=== PATIENT | female | born 1945 | race Caucasian/White ===

== ENCOUNTER 2019-04-15 09:00 | Inpatient (IN) ==
[~2019-04-15 09:00] MED LIST: DEXTROSE 50% 25 GM/50 ML VIAL IV PRN; DICLOFENAC 1% GEL 100 GM TUBE TOP PRN; GLUCAGON 1 MG VIAL IM PRN; ONDANSETRON 4 MG/2 ML VIAL IV PRN
[2019-04-15 10:14] LABS: Basophils # 0.1 10*3/uL (0.0-0.2); Basophils % 0.8 % (0.0-0.8); Eosinophils # 0.2 10*3/uL (0.0-0.87); Eosinophils % 3.6 % (0.00-10.9); Hematocrit 37.1 VOL% (35.7-47.0); Immature Granulocytes % 0.2 %; Immature Granulocytes Absolute 0.01 #; Lymphocytes # 1.6 10*3/uL (1.4-4.0); Lymphocytes % 25.7 % (21.3-54.2); Mean Corpuscular HGB Conc 32.3 GM/DL (32-36); Mean Corpuscular Volume 92.5 FL (87-102); Mean Platelet Volume 9.2 FL (9.6-12.0); Monocytes % 6.8 % (1.7-12.7); Neutrophils % 62.9 % (38.7-73.9); Platelet Count 243 T/CUMM (130-400); Red Blood Count 4.01 MC/CUMM (3.8-5.5); White Blood Count 6.1 T/CUMM (4-12)
[2019-04-15 10:33] LABS: Albumin 3.2 G/DL (3.4-5.0); Bilirubin,Total 1.1 MG/DL (0.2-1.0); Calcium 8.9 MG/DL (8.5-10.1); Total Protein 6.4 G/DL (6.4-8.3)
[2019-04-15] MEDS: CHLORHEXIDINE 0.12% ORAL RINSE 60 ML BOTTLE SWISH/SPIT SCH ×4 (10:55→21:34)
[2019-04-15] MEDS: OMEGA 3 ACID ETHYL ESTERS 1 GM CAPSULE PO SCH ×7 (11:11→21:36)
[2019-04-15] MEDS: FESOTERODINE 4 MG PO SCH ×3 (11:11→14:53)
[2019-04-15] MEDS: LOSARTAN/HCTZ 50-12.5 MG TABLET PO SCH ×2 (11:11→14:53)
[2019-04-15] MEDS: MULTIVITAMIN (BEROCCA) TABLET PO SCH ×5 (11:11→14:58)
[2019-04-15] MEDS: COENZYME Q10 100 MG CAPSULE PO SCH ×4 (11:11→14:58)
[2019-04-15] MEDS: ASPIRIN EC 81 MG TABLET PO SCH ×5 (11:11→14:58)
[2019-04-15] MEDS: CHOLECALCIFEROL 400 UNIT TABLET PO SCH ×5 (11:12→14:58)
[2019-04-15] MEDS: ASCORBIC ACID 500 MG TABLET PO SCH ×6 (11:12→21:39)
[2019-04-15] MEDS: COLESEVELAM 625 MG TABLET PO SCH ×7 (11:12→21:36)
[2019-04-15] MEDS: MELOXICAM 7.5 MG TABLET PO SCH ×2 (11:12→14:54)
[2019-04-15] MEDS: PANTOPRAZOLE 40 MG TABLET PO SCH ×5 (11:12→14:58)
[2019-04-15] MEDS: SODIUM CHLORIDE 0.9% 1,000 ML IV SCH ×3 (14:54→14:59)
[2019-04-15] MEDS: CHLORHEXIDINE 4% SOLN 118 ML BOTTLE TOP SCH ×2 (16:18→22:06)
[2019-04-15 16:43] LABS: Pt O2 Delivery Device Room Air
[2019-04-15 16:44] LABS: ABG Base Excess 3.4 MMOL/L (-2.5-2.5); ABG HCO3 26.7 MMOL/L (20-26); ABG Oxygen Saturation 64.1 % (95-100); ABG PCO2 49.8 MM HG (35-48); ABG PH 7.382 (7.35-7.45)
[2019-04-15 16:46] LABS: ABG PO2 33.9 MM HG (80-95)
[2019-04-15 17:46] LABS: ABG Base Excess 1.2 MMOL/L (-2.5-2.5); ABG HCO3 25.5 MMOL/L (20-26); ABG PCO2 43.4 MM HG (35-48); ABG PH 7.393 (7.35-7.45); ABG PO2 80.8 MM HG (80-95); ABG TCO2 23.2 MMOL/L (23-27)
[2019-04-16] MEDS ORDERED: VANCOMYCIN 1,000 MG VIAL ONE (04:25)
[2019-04-16] MEDS ORDERED: FAMOTIDINE 20 MG TABLET PO ONE (06:00)
[2019-04-16] MEDS ORDERED: CEFUROXIME INJ 1,500 MG in SYRINGE 1 EACH IV ONE (06:00)
[2019-04-16] MEDS ORDERED: DIAZEPAM 5 MG TABLET PO ONE (06:00)
[2019-04-16] MEDS ORDERED: MIDAZOLAM 10 MG/2 ML VIAL ONE (06:04)
[2019-04-16] MEDS ORDERED: SUFentanil 250 MCG/5 ML AMP ONE (06:04)
[2019-04-16] MEDS ORDERED: NITROPRUSSIDE 50 MG/2 ML VIAL ONE (07:30)
[2019-04-16] MEDS ORDERED: EPINEPHrine 1 MG/10 ML SYRINGE ONE (07:30)
[2019-04-16] MEDS ORDERED: SODIUM BICARBONATE 50 MEQ/50 ML VIAL IV ONE ×2 (07:30→09:44)
[2019-04-16] MEDS ORDERED: PHENYLEPHRINE DRIP 40 MG/250 ML PREMIX IV ONE (07:30)
[2019-04-16] MEDS ORDERED: CALCIUM CHLORIDE 1,000 MG/10 ML SYRINGE IV ONE (07:30)
[2019-04-16] MEDS ORDERED: POTASSIUM CHLORIDE RIDER 100 ML IV ONE (07:31)
[2019-04-16] MEDS ORDERED: ATROPINE 1 MG/10 ML SYRINGE ONE (07:31)
[2019-04-16] MEDS ORDERED: ALBUMIN 5% 12.5 GM/250 ML VIAL IV ONE (07:31)
[2019-04-16] MEDS ORDERED: LIDOCAINE 100 MG/5 ML SYRINGE ONE (07:31)
[2019-04-16 07:54] LABS: ABG Base Excess 2.2 MMOL/L (-2.5-2.5); ABG HCO3 26.4 MMOL/L (20-26); ABG Oxygen Saturation 99.8 % (95-100); ABG PCO2 37.9 MM HG (35-48); ABG PH 7.447 (7.35-7.45); Glucose Heart Surgery 103 MG/DL (74-106); Hematocrit Heart Surgery 37.3 PERCENT (37-47); Hemoglobin Heart Surgery 12.1 G/DL (12.0-16.0); Ionized Calcium Arterial 1.19 MMOL/L (1.21-1.46); PCO2 Patient Temp Arterial 37.9 MMHG; PH Patient Temp Arterial 7.447; Patient Temperature 37 CELCIUS; Sodium Heart/CVR 139 MMOL/L (135-145)
[2019-04-16 08:37] LABS: Hematocrit Heart Surgery 26.2 PERCENT (37-47); Hemoglobin Heart Surgery 8.4 G/DL (12.0-16.0); PCO2 Patient Temp Venous 37.3 MM HG; PH Patient Temp Venous 7.457; PO2 Patient Temp Venous 39.3 MM HG; Potassium Heart/CVR 4.4 MMOL/L (3.5-5.1); VBG Base Excess 2.6 MEQ/L (0-4); VBG HCO3 26.5 MEQ/L (24-28); VBG Oxygen Saturation 80.8 %; VBG PCO2 39.2 MMHG (41-51); VBG PH 7.442; VBG PO2 42.1 MMHG (17-40)
[2019-04-16 09:07] LABS: Hematocrit Heart Surgery 27.9 PERCENT (37-47); PH Patient Temp Venous 7.467; PO2 Patient Temp Venous 38.6 MM HG; VBG Base Excess 1.9 MEQ/L (0-4); VBG HCO3 25.9 MEQ/L (24-28); VBG PCO2 40.5 MMHG (41-51); VBG PH 7.423; VBG PO2 47.5 MMHG (17-40)
[2019-04-16] MEDS ORDERED: MANNITOL 100 GM/500 ML BAG IV ONE (09:43)
[2019-04-16] MEDS ORDERED: LIDOCAINE 2% 5 ML VIAL ONE (09:43)
[2019-04-16] MEDS ORDERED: PROTAMINE SULFATE 50 MG/5 ML VIAL IV ONE ×3 (09:44→11:41)
[2019-04-16] MEDS ORDERED: FUROSEMIDE 20 MG/2 ML VIAL ONE (09:44)
[2019-04-16] MEDS ORDERED: methylPREDNISolone SOD SUC 1,000 MG/8 ML VIAL ONE (09:44)
[2019-04-16] MEDS ORDERED: DEXTROSE 5% KCL 20 MEQ 20 MEQ/1,000 ML BAG IV ONE (09:44)
[2019-04-16] MEDS ORDERED: HEPARIN 10,000 UNIT/10 ML VIAL ONE (09:44)
[2019-04-16] MEDS ORDERED: MAGNESIUM SULFATE 5 GM/10 ML VIAL IV ONE (09:44)
[2019-04-16] MEDS ORDERED: PROTAMINE SULFATE 250 MG/25 ML VIAL IV ONE (09:44)
[2019-04-16 10:05] LABS: ABG Base Excess 0.4 MMOL/L (-2.5-2.5); ABG HCO3 24.6 MMOL/L (20-26); ABG Oxygen Saturation 99.2 % (95-100); ABG PCO2 38.1 MM HG (35-48); ABG PH 7.428 (7.35-7.45); ABG PO2 346.9 MM HG (80-95); ABG TCO2 25.8 MMOL/L (23-27); Glucose Heart Surgery 157 MG/DL (74-106); Hemoglobin Heart Surgery 10.7 G/DL (12.0-16.0); Ionized Calcium Arterial 1.24 MMOL/L (1.21-1.46); PCO2 Patient Temp Arterial 38.1 MMHG; PH Patient Temp Arterial 7.428; PO2 Patient Temp Arterial 346.9 MM HG; Patient Temperature 37 CELCIUS; Potassium Heart/CVR 3.6 MMOL/L (3.5-5.1); Sodium Heart/CVR 134 MMOL/L (135-145)
[2019-04-16] MEDS ORDERED: SEVOFLURANE 1 UNIT/15 MINUTE INH ONE (10:43)
[2019-04-16] MEDS ORDERED: CALCIUM CHLORIDE 1,000 MG/10 ML SYRINGE IV PRN (10:44)
[2019-04-16] MEDS ORDERED: INSULIN REGULAR 100 UNIT/ML IV ONE (10:44)
[2019-04-16] MEDS ORDERED: MIDAZOLAM 10 MG/2 ML VIAL IV PRN (10:44)
[2019-04-16] MEDS ORDERED: ONDANSETRON 4 MG/2 ML VIAL IV PRN (10:44)
[2019-04-16] MEDS ORDERED: DEXTROSE 10% 250 ML BAG IV PRN ×2 (10:44)
[2019-04-16] MEDS ORDERED: PHENYLEPHRINE DRIP 40 MG/250 ML PREMIX IV PRN (10:44)
[2019-04-16] MEDS ORDERED: MORPHINE 10 MG/1 ML VIAL IV PRN (10:44)
[2019-04-16] MEDS ORDERED: ACETAMINOPHEN 650 MG SUPP RECTAL PRN (10:44)
[2019-04-16] MEDS ORDERED: MAGNESIUM SULF RIDER 2 GM in PREMIX 1 EACH IV PRN (10:44)
[2019-04-16] MEDS ORDERED: MIDAZOLAM 2 MG/2 ML VIAL IV PRN (10:44)
[2019-04-16] MEDS ORDERED: NITROPRUSSIDE 100 MG in DEXTROSE 5% 250 ML IV PRN (10:44)
[2019-04-16] MEDS ORDERED: MAGNESIUM SULF RIDER 4 GM in PREMIX 1 EACH IV PRN (10:44)
[2019-04-16] MEDS ORDERED: VECURONIUM 10 MG VIAL IV PRN ×2 (10:44)
[2019-04-16] MEDS ORDERED: LACTATED RINGERS 250 ML IV PRN (10:44)
[2019-04-16] MEDS ORDERED: INSULIN REGULAR 100 UNIT/ML IV PRN (10:44)
[2019-04-16] MEDS ORDERED: PHENYLEPHRINE DRIP 20 MG/250 ML PREMIX IV ONE (10:46)
[2019-04-16] MEDS ORDERED: LIDOCAINE 1% 5 ML VIAL ONE (10:46)
[2019-04-16] MEDS ORDERED: SODIUM CHLORIDE 0.9% 1,000 ML IV ONE (10:47)
[2019-04-16] MEDS ORDERED: CALCIUM CHLORIDE 1,000 MG/10 ML VIAL IV ONE (10:47)
[2019-04-16] MEDS ORDERED: ETOMIDATE 40 MG/20 ML VIAL IV ONE (10:47)
[2019-04-16] MEDS ORDERED: NITROGLYCERIN DRIP 50 MG/250 ML BOTTLE IV ONE (10:47)
[2019-04-16] MEDS ORDERED: PHENYLEPHRINE 1 MG/10 ML SYRINGE IV ONE (10:47)
[2019-04-16] MEDS ORDERED: AMINOCAPROIC ACID 5,000 MG/20 ML VIAL ONE (10:47)
[2019-04-16] MEDS ORDERED: HEPARIN/NACL 0.9% 2 UNITS/ML 500 ML IV ONE (10:48)
[2019-04-16] MEDS ORDERED: SODIUM CHLORIDE 0.45% 1,000 ML IV SCH ×2 (11:00)
[2019-04-16] MEDS ORDERED: INSULIN REGULAR DRIP 100 ML IV SCH (11:00)
[2019-04-16 11:29] LABS: ABG Base Excess 0.7 MMOL/L (-2.5-2.5); ABG HCO3 25.1 MMOL/L (20-26); ABG Oxygen Saturation 99.8 % (95-100); ABG PCO2 41.1 MM HG (35-48); ABG PH 7.401 (7.35-7.45); Glucose Heart Surgery 136 MG/DL (74-106); Hematocrit Heart Surgery 32.6 PERCENT (37-47); Hemoglobin Heart Surgery 10.6 G/DL (12.0-16.0); Potassium Heart/CVR 3.6 MMOL/L (3.5-5.1)
[2019-04-16] MEDS: POTASSIUM CHLORIDE RIDER 20 MEQ in PREMIX 1 EACH IV PRN ×4 (11:36→17:57)
[2019-04-16] MEDS: CHLORHEXIDINE 4% SOLN 118 ML BOTTLE TOP SCH (11:38)
[2019-04-16] MEDS: KETOROLAC 30 MG/1 ML VIAL IV SCH ×3 (11:39→22:31)
[2019-04-16] MEDS: PANTOPRAZOLE 40 MG TABLET PO SCH (11:48)
[2019-04-16] MEDS: MELOXICAM 7.5 MG TABLET PO SCH (11:48)
[2019-04-16] MEDS: MULTIVITAMIN (BEROCCA) TABLET PO SCH (11:48)
[2019-04-16] MEDS: OMEGA 3 ACID ETHYL ESTERS 1 GM CAPSULE PO SCH (11:48)
[2019-04-16] MEDS: COENZYME Q10 100 MG CAPSULE PO SCH (11:48)
[2019-04-16] MEDS: ASPIRIN EC 81 MG TABLET PO SCH (11:48)
[2019-04-16] MEDS: LOSARTAN/HCTZ 50-12.5 MG TABLET PO SCH (11:48)
[2019-04-16] MEDS: CHLORHEXIDINE 0.12% ORAL RINSE 60 ML BOTTLE SWISH/SPIT SCH (11:48)
[2019-04-16] MEDS: COLESEVELAM 625 MG TABLET PO SCH (11:49)
[2019-04-16] MEDS: ASCORBIC ACID 500 MG TABLET PO SCH (11:49)
[2019-04-16] MEDS: CHOLECALCIFEROL 400 UNIT TABLET PO SCH (11:49)
[2019-04-16] MEDS: SODIUM CHLORIDE 0.9% 1,000 ML IV SCH (11:49)
[2019-04-16 11:58] LABS: CKMB % 10.7 %
[2019-04-16 11:59] LABS: Basophils # 0.1 10*3/uL (0.0-0.2); Basophils % 0.5 % (0.0-0.8); Eosinophils # 0.1 10*3/uL (0.0-0.87); Eosinophils % 1.2 % (0.00-10.9); Hematocrit 33.3 VOL% (35.7-47.0); Hemoglobin 10.6 GM/DL (12.0-16.0); Immature Granulocytes % 0.6 %; Immature Granulocytes Absolute 0.07 #; Lymphocytes % 8.7 % (21.3-54.2); Mean Corpuscular HGB Conc 31.8 GM/DL (32-36); Mean Corpuscular Volume 93.5 FL (87-102); Mean Platelet Volume 9.2 FL (9.6-12.0); Platelet Count 211 T/CUMM (130-400); Red Blood Count 3.56 MC/CUMM (3.8-5.5); Red Cell Distribution Width 12.9 % (9.3-17.3)
[2019-04-16 12:05] LABS: PT Patient Result 11.1 SECS (9.6-12.2)
[2019-04-16 12:06] LABS: Troponin I 6.08 NG/ML (0.00-0.045)
[2019-04-16] MEDS: POTASSIUM CHLORIDE RIDER 10 MEQ in PREMIX 1 EACH IV PRN ×3 (12:06→13:58)
[2019-04-16] MEDS: ALBUMIN 5% 12.5 GM in PREMIX 1 EACH IV PRN ×2 (12:23→12:42)
[2019-04-16 12:24] LABS: Albumin 3.2 G/DL (3.4-5.0); Calcium 9.5 MG/DL (8.5-10.1); Osmolality,Calculated 292.6 MOS/KG (273-304); Total Protein 5.5 G/DL (6.4-8.3)
[2019-04-16] MEDS: LACTATED RINGERS 1,000 ML IV PRN ×3 (12:48→16:30)
[2019-04-16 13:11] LABS: ABG Base Excess -0.5 MMOL/L (-2.5-2.5); ABG Oxygen Saturation 97.6 % (95-100); ABG PCO2 48.7 MM HG (35-48); ABG PH 7.333 (7.35-7.45); ABG TCO2 23.6 MMOL/L (23-27); Glucose Heart Surgery 176 MG/DL (74-106); Hematocrit Heart Surgery 31.3 PERCENT (37-47); Hemoglobin Heart Surgery 10.1 G/DL (12.0-16.0); Potassium Heart/CVR 3.9 MMOL/L (3.5-5.1)
[2019-04-16 15:05] LABS: ABG Base Excess -1.1 MMOL/L (-2.5-2.5); ABG HCO3 23.5 MMOL/L (20-26); ABG Oxygen Saturation 97.8 % (95-100); ABG PCO2 49.1 MM HG (35-48); ABG PH 7.321 (7.35-7.45); ABG TCO2 23.4 MMOL/L (23-27); Glucose Heart Surgery 187 MG/DL (74-106); Hematocrit Heart Surgery 29.7 PERCENT (37-47); Hemoglobin Heart Surgery 9.6 G/DL (12.0-16.0)
[2019-04-16] MEDS: MORPHINE 4 MG/1 ML VIAL IV PRN ×2 (17:39→21:11)
[2019-04-16 17:49] LABS: ABG Base Excess -4.2 MMOL/L (-2.5-2.5); ABG HCO3 20.9 MMOL/L (20-26); ABG Oxygen Saturation 98.3 % (95-100); ABG PCO2 44.4 MM HG (35-48); ABG PH 7.304 (7.35-7.45); ABG TCO2 20.3 MMOL/L (23-27); Glucose Heart Surgery 178 MG/DL (74-106); Hematocrit Heart Surgery 30.9 PERCENT (37-47)
[2019-04-16] MEDS: CEFUROXIME INJ 1,500 MG in SYRINGE 1 EACH IV SCH (17:55)
[2019-04-16 19:04] LABS: CKMB % 8.8 %
[2019-04-16 19:09] LABS: Troponin I 4.18 NG/ML (0.00-0.045)
[2019-04-16 20:04] LABS: ABG Base Excess -3.4 MMOL/L (-2.5-2.5); ABG HCO3 21.6 MMOL/L (20-26); ABG Oxygen Saturation 98.8 % (95-100); ABG PCO2 45.3 MM HG (35-48); ABG PH 7.312 (7.35-7.45); ABG TCO2 20.8 MMOL/L (23-27); Glucose Heart Surgery 167 MG/DL (74-106); Hematocrit Heart Surgery 33.9 PERCENT (37-47); Potassium Heart/CVR 4.5 MMOL/L (3.5-5.1)
[2019-04-16] MEDS ORDERED: CHLORHEXIDINE 0.12% ORAL RINSE 60 ML BOTTLE SWISH/SPIT SCH (21:00)
[2019-04-17] MEDS ORDERED: FUROSEMIDE 40 MG/4 ML VIAL IV ONE (03:00)
[2019-04-17 03:07] LABS: ABG HCO3 24.5 MMOL/L (20-26); ABG Oxygen Saturation 98.3 % (95-100); ABG PCO2 44.3 MM HG (35-48); ABG PH 7.369 (7.35-7.45); ABG TCO2 23.2 MMOL/L (23-27); Glucose Heart Surgery 137 MG/DL (74-106); Hematocrit Heart Surgery 31.6 PERCENT (37-47); Hemoglobin Heart Surgery 10.2 G/DL (12.0-16.0); Potassium Heart/CVR 4.3 MMOL/L (3.5-5.1)
[2019-04-17 03:29] LABS: CKMB % 7.5 %
[2019-04-17 03:34] LABS: Troponin I 2.82 NG/ML (0.00-0.045)
[2019-04-17] MEDS: POTASSIUM CHLORIDE RIDER 20 MEQ in PREMIX 1 EACH IV PRN (03:43)
[2019-04-17 03:53] LABS: ABG Base Excess 0.9 MMOL/L (-2.5-2.5); ABG HCO3 25.2 MMOL/L (20-26); ABG Oxygen Saturation 97.7 % (95-100); ABG PCO2 43.6 MM HG (35-48); ABG PH 7.386 (7.35-7.45); ABG PO2 93.7 MM HG (80-95); ABG TCO2 23.6 MMOL/L (23-27); Glucose Heart Surgery 143 MG/DL (74-106); Hematocrit Heart Surgery 32.8 PERCENT (37-47); Hemoglobin Heart Surgery 10.6 G/DL (12.0-16.0)
[2019-04-17 04:15] LABS: Basophils % 0.3 % (0.0-0.8); Hematocrit 30.5 VOL% (35.7-47.0); Hemoglobin 9.8 GM/DL (12.0-16.0); Immature Granulocytes % 0.7 %; Lymphocytes # 0.6 10*3/uL (1.4-4.0); Lymphocytes % 4.2 % (21.3-54.2); Mean Corpuscular HGB Conc 32.1 GM/DL (32-36); Mean Corpuscular Volume 91.9 FL (87-102); Mean Platelet Volume 9.4 FL (9.6-12.0); Monocytes % 4.4 % (1.7-12.7); Neutrophils % 90.4 % (38.7-73.9); Platelet Count 167 T/CUMM (130-400); Red Blood Count 3.32 MC/CUMM (3.8-5.5); Red Cell Distribution Width 13.7 % (9.3-17.3); White Blood Count 14.9 T/CUMM (4-12)
[2019-04-17 04:26] LABS: Albumin 3.3 G/DL (3.4-5.0); Bilirubin,Direct 0.12 MG/DL (0.0-0.20); Bilirubin,Total 0.5 MG/DL (0.2-1.0); Calcium 8.2 MG/DL (8.5-10.1); Osmolality,Calculated 284.3 MOS/KG (273-304); Total Protein 5.8 G/DL (6.4-8.3)
[2019-04-17 04:45] LABS: ABG Base Excess 1.4 MMOL/L (-2.5-2.5); ABG HCO3 25.6 MMOL/L (20-26); ABG Oxygen Saturation 95.9 % (95-100); ABG PCO2 43.9 MM HG (35-48); ABG PH 7.391 (7.35-7.45); ABG PO2 75.1 MM HG (80-95); Glucose Heart Surgery 140 MG/DL (74-106); Hematocrit Heart Surgery 32.9 PERCENT (37-47); Hemoglobin Heart Surgery 10.7 G/DL (12.0-16.0); Potassium Heart/CVR 4.2 MMOL/L (3.5-5.1)
[2019-04-17 05:06] LABS: Band Neutrophils 2 % (0-10); Hypochromasia Slight; Lymphocytes 1 % (20-55); Segmented Neutrophils 95 % (50-85); Total Cells Counted 100
[2019-04-17 05:07] LABS: Microcytosis Slight; Platelet Estimate Adequate
[2019-04-17] MEDS: CEFUROXIME INJ 1,500 MG in SYRINGE 1 EACH IV SCH (05:41)
[2019-04-17] MEDS: KETOROLAC 30 MG/1 ML VIAL IV SCH ×3 (05:41→17:36)
[2019-04-17] MEDS ORDERED: INSULIN REGULAR 100 UNIT/ML SUBCUT SCH (08:00)
[2019-04-17] MEDS ORDERED: MAGNESIUM SULF RIDER 4 GM in PREMIX 1 EACH IV PRN (08:52)
[2019-04-17] MEDS ORDERED: DEXTROSE 50% 25 GM/50 ML VIAL IV PRN ×3 (08:52→09:09)
[2019-04-17] MEDS ORDERED: GLUCAGON 1 MG VIAL IM PRN ×3 (08:52→09:09)
[2019-04-17] MEDS ORDERED: MAGNESIUM HYDROXIDE SUSP 30 ML UDCUP PO PRN (08:52)
[2019-04-17] MEDS ORDERED: POTASSIUM CHLORIDE 20 MEQ TABLET PO PRN (08:52)
[2019-04-17] MEDS ORDERED: ZALEPLON 5 MG CAPSULE PO PRN (08:52)
[2019-04-17] MEDS ORDERED: ALUMINUM/MAGNES/SIMETH MAX STR 30 ML UDCUP PO PRN (08:52)
[2019-04-17] MEDS ORDERED: ACETAMINOPHEN 325 MG TABLET PO PRN (08:52)
[2019-04-17] MEDS ORDERED: MAGNESIUM SULF RIDER 2 GM in PREMIX 1 EACH IV PRN (08:52)
[2019-04-17] MEDS ORDERED: ONDANSETRON 4 MG/2 ML VIAL IV PRN (08:52)
[2019-04-17] MEDS: ASPIRIN EC 325 MG TABLET PO SCH (09:52)
[2019-04-17] MEDS: PANTOPRAZOLE 40 MG TABLET PO SCH (09:53)
[2019-04-17] MEDS: SODIUM CHLOR 0.45% KCL 20 MEQ 20 MEQ/1,000 ML BAG IV SCH (09:53)
[2019-04-17] MEDS: CHLORHEXIDINE 0.12% ORAL RINSE 60 ML BOTTLE SWISH/SPIT SCH ×2 (10:10→21:22)
[2019-04-17] MEDS: DOCUSATE SODIUM 100 MG CAPSULE PO SCH (10:10)
[2019-04-17] MEDS: FERROUS SULFATE 325 MG TABLET PO SCH (10:11)
[2019-04-17] MEDS ORDERED: LOSARTAN/HCTZ 50-12.5 MG TABLET PO ONE (10:30)
[2019-04-17] MEDS: INSULIN REGULAR 100 UNIT/ML SUBCUT SCH ×3 (11:40→21:15)
[2019-04-17] MEDS ORDERED: KETOROLAC 30 MG/1 ML VIAL IV SCH (18:00)
[2019-04-17] MEDS ORDERED: CEFUROXIME INJ 1,500 MG in SYRINGE 1 EACH IV SCH (18:30)
[2019-04-17] MEDS: ASCORBIC ACID 500 MG TABLET PO SCH (21:21)
[2019-04-18] MEDS: oxyCODONE/ACETAMINOPHEN 5-325 MG TABLET PO PRN ×2 (03:50→20:12)
[2019-04-18 04:25] LABS: Basophils % 0.3 % (0.0-0.8); Eosinophils % 0.2 % (0.00-10.9); Hematocrit 32.3 VOL% (35.7-47.0); Immature Granulocytes % 0.8 %; Immature Granulocytes Absolute 0.12 #; Lymphocytes # 1.9 10*3/uL (1.4-4.0); Lymphocytes % 12.4 % (21.3-54.2); Mean Corpuscular Volume 96.4 FL (87-102); Mean Platelet Volume 9.5 FL (9.6-12.0); Neutrophils % 79.3 % (38.7-73.9); Platelet Count 149 T/CUMM (130-400); Red Blood Count 3.35 MC/CUMM (3.8-5.5); Red Cell Distribution Width 13.9 % (9.3-17.3); White Blood Count 14.9 T/CUMM (4-12)
[2019-04-18 04:44] LABS: Albumin 3.4 G/DL (3.4-5.0); Bilirubin,Direct 0.11 MG/DL (0.0-0.20); Bilirubin,Indirect 0.3 MG/DL (0.0-1.0); Bilirubin,Total 0.4 MG/DL (0.2-1.0); CKMB % 2.2 %; Calcium 8.7 MG/DL (8.5-10.1); Osmolality,Calculated 286.3 MOS/KG (273-304); Total Protein 6.3 G/DL (6.4-8.3)
[2019-04-18 04:46] LABS: Troponin I 2.02 NG/ML (0.00-0.045)
[2019-04-18] MEDS: INSULIN REGULAR 100 UNIT/ML SUBCUT SCH ×5 (05:35→20:16)
[2019-04-18] MEDS ORDERED: FUROSEMIDE 40 MG/4 ML VIAL IV ONE (06:00)
[2019-04-18] MEDS: SODIUM CHLOR 0.45% KCL 20 MEQ 20 MEQ/1,000 ML BAG IV SCH (09:11)
[2019-04-18] MEDS: FERROUS SULFATE 325 MG TABLET PO SCH (09:12)
[2019-04-18] MEDS: DOCUSATE SODIUM 100 MG CAPSULE PO SCH (09:12)
[2019-04-18] MEDS: ASPIRIN EC 325 MG TABLET PO SCH (09:12)
[2019-04-18] MEDS: LOSARTAN/HCTZ 50-12.5 MG TABLET PO SCH ×3 (09:13→13:13)
[2019-04-18] MEDS: MELOXICAM 7.5 MG TABLET PO SCH (09:14)
[2019-04-18] MEDS: MAGNESIUM OXIDE 400 MG TABLET PO SCH (09:14)
[2019-04-18] MEDS: CHLORHEXIDINE 0.12% ORAL RINSE 60 ML BOTTLE SWISH/SPIT SCH ×2 (09:15→20:11)
[2019-04-18] MEDS: ASCORBIC ACID 500 MG TABLET PO SCH ×2 (09:15→20:11)
[2019-04-18] MEDS: PANTOPRAZOLE 40 MG TABLET PO SCH (09:15)
[2019-04-18] MEDS ORDERED: AMIODARONE INJ 150 MG in DEXTROSE 5% 100 ML IV ONE (20:43)
[2019-04-18] MEDS ORDERED: AMIODARONE INJ 450 MG in DEXTROSE 5% 241 ML IV SCH (21:00)
[2019-04-19] MEDS: INSULIN REGULAR 100 UNIT/ML SUBCUT SCH ×6 (00:10→23:00)
[2019-04-19 05:15] LABS: Basophils % 0.4 % (0.0-0.8); Eosinophils # 0.2 10*3/uL (0.0-0.87); Eosinophils % 1.9 % (0.00-10.9); Hematocrit 32.1 VOL% (35.7-47.0); Immature Granulocytes % 0.6 %; Immature Granulocytes Absolute 0.07 #; Lymphocytes # 2.7 10*3/uL (1.4-4.0); Lymphocytes % 24.7 % (21.3-54.2); Mean Corpuscular HGB Conc 31.2 GM/DL (32-36); Mean Platelet Volume 9.8 FL (9.6-12.0); Monocytes % 8.9 % (1.7-12.7); Neutrophils % 63.5 % (38.7-73.9); Platelet Count 131 T/CUMM (130-400); Red Blood Count 3.38 MC/CUMM (3.8-5.5); Red Cell Distribution Width 13.6 % (9.3-17.3); White Blood Count 10.9 T/CUMM (4-12)
[2019-04-19 05:47] LABS: Alanine Aminotransferase 21 U/L (13-56); Albumin 3.1 G/DL (3.4-5.0); Alkaline Phosphatase 45 U/L (45-117); Aspartate Amino Transferase 23 U/L (0-37); Bilirubin,Indirect 0.5 MG/DL (0.0-1.0); Blood Urea Nitrogen 24 MG/DL (7-18); Calcium 9.4 MG/DL (8.5-10.1); Estimated Glom Filtration Rate 100 ML/MIN; Glucose 122 MG/DL (74-106); Total Protein 6.2 G/DL (6.4-8.3)
[2019-04-19] MEDS: AMIODARONE 200 MG TABLET PO SCH ×2 (06:45→22:27)
[2019-04-19] MEDS ORDERED: FESOTERODINE 4 MG PO SCH (09:00)
[2019-04-19] MEDS: DOCUSATE SODIUM 100 MG CAPSULE PO SCH (09:58)
[2019-04-19] MEDS: COENZYME Q10 100 MG CAPSULE PO SCH (09:58)
[2019-04-19] MEDS: FERROUS SULFATE 325 MG TABLET PO SCH (09:58)
[2019-04-19] MEDS: CHOLECALCIFEROL 400 UNIT TABLET PO SCH (09:58)
[2019-04-19] MEDS: LOSARTAN/HCTZ 50-12.5 MG TABLET PO SCH (09:59)
[2019-04-19] MEDS: MULTIVITAMIN (BEROCCA) TABLET PO SCH (10:00)
[2019-04-19] MEDS: OMEGA 3 ACID ETHYL ESTERS 1 GM CAPSULE PO SCH ×2 (10:00→22:27)
[2019-04-19] MEDS: MAGNESIUM OXIDE 400 MG TABLET PO SCH (10:00)
[2019-04-19] MEDS: COLESEVELAM 625 MG TABLET PO SCH ×2 (10:00→22:27)
[2019-04-19] MEDS: ASCORBIC ACID 500 MG TABLET PO SCH ×2 (10:01→22:27)
[2019-04-19] MEDS: CHLORHEXIDINE 0.12% ORAL RINSE 60 ML BOTTLE SWISH/SPIT SCH ×2 (10:02→23:00)
[2019-04-19] MEDS: PANTOPRAZOLE 40 MG TABLET PO SCH (10:02)
[2019-04-19] MEDS: ASPIRIN EC 325 MG TABLET PO SCH (10:02)
[2019-04-19] MEDS: MELOXICAM 7.5 MG TABLET PO SCH (10:02)
[2019-04-19] MEDS: oxyCODONE/ACETAMINOPHEN 5-325 MG TABLET PO PRN (22:28)
[2019-04-20] MEDS: INSULIN REGULAR 100 UNIT/ML SUBCUT SCH ×2 (07:17→08:10)
[2019-04-20] MEDS: MULTIVITAMIN (BEROCCA) TABLET PO SCH (08:12)
[2019-04-20] MEDS: DOCUSATE SODIUM 100 MG CAPSULE PO SCH (08:12)
[2019-04-20] MEDS: COENZYME Q10 100 MG CAPSULE PO SCH (08:12)
[2019-04-20] MEDS: MELOXICAM 7.5 MG TABLET PO SCH (08:12)
[2019-04-20] MEDS: ASPIRIN EC 325 MG TABLET PO SCH (08:12)
[2019-04-20] MEDS: CHOLECALCIFEROL 400 UNIT TABLET PO SCH (08:13)
[2019-04-20] MEDS: AMIODARONE 200 MG TABLET PO SCH ×2 (08:13→20:41)
[2019-04-20] MEDS: CHLORHEXIDINE 0.12% ORAL RINSE 60 ML BOTTLE SWISH/SPIT SCH ×2 (08:13→20:41)
[2019-04-20] MEDS: COLESEVELAM 625 MG TABLET PO SCH ×2 (08:13→20:41)
[2019-04-20] MEDS: MAGNESIUM OXIDE 400 MG TABLET PO SCH (08:13)
[2019-04-20] MEDS: FERROUS SULFATE 325 MG TABLET PO SCH (08:13)
[2019-04-20] MEDS: PANTOPRAZOLE 40 MG TABLET PO SCH (08:13)
[2019-04-20] MEDS: LOSARTAN/HCTZ 50-12.5 MG TABLET PO SCH (08:13)
[2019-04-20] MEDS: OMEGA 3 ACID ETHYL ESTERS 1 GM CAPSULE PO SCH ×2 (08:13→20:41)
[2019-04-20] MEDS: ASCORBIC ACID 500 MG TABLET PO SCH ×2 (08:13→20:41)
[2019-04-20] MEDS: oxyCODONE/ACETAMINOPHEN 5-325 MG TABLET PO PRN (21:27)
[2019-04-21 04:30] LABS: Basophils % 0.5 % (0.0-0.8); Eosinophils # 0.4 10*3/uL (0.0-0.87); Hematocrit 32.9 VOL% (35.7-47.0); Hemoglobin 10.1 GM/DL (12.0-16.0); Immature Granulocytes % 0.9 %; Immature Granulocytes Absolute 0.08 #; Lymphocytes # 2.4 10*3/uL (1.4-4.0); Lymphocytes % 27.1 % (21.3-54.2); Mean Corpuscular HGB Conc 30.7 GM/DL (32-36); Mean Corpuscular Volume 95.9 FL (87-102); Mean Platelet Volume 9.3 FL (9.6-12.0); Monocytes % 7.1 % (1.7-12.7); Neutrophils % 60.4 % (38.7-73.9); Platelet Count 173 T/CUMM (130-400); Red Blood Count 3.43 MC/CUMM (3.8-5.5); Red Cell Distribution Width 13.1 % (9.3-17.3); White Blood Count 8.8 T/CUMM (4-12)
[2019-04-21 05:03] LABS: Alanine Aminotransferase 29 U/L (13-56); Alkaline Phosphatase 51 U/L (45-117); Aspartate Amino Transferase 19 U/L (0-37); Bilirubin,Indirect 0.5 MG/DL (0.0-1.0); Blood Urea Nitrogen 20 MG/DL (7-18); Calcium 9.4 MG/DL (8.5-10.1); Estimated Glom Filtration Rate 111 ML/MIN; Glucose 111 MG/DL (74-106); Osmolality,Calculated 284.3 MOS/KG (273-304); Total Protein 6.4 G/DL (6.4-8.3)
[2019-04-21 05:06] LABS: Troponin I 0.406 NG/ML (0.00-0.045)
[2019-04-21] MEDS: INSULIN REGULAR 100 UNIT/ML SUBCUT SCH (07:22)
[2019-04-21 07:24] VITALS: BP 130/59
[2019-04-21] MEDS: DOCUSATE SODIUM 100 MG CAPSULE PO SCH (08:05)
[2019-04-21] MEDS: MAGNESIUM OXIDE 400 MG TABLET PO SCH (08:05)
[2019-04-21] MEDS: ASCORBIC ACID 500 MG TABLET PO SCH (08:05)
[2019-04-21] MEDS: COLESEVELAM 625 MG TABLET PO SCH (08:05)
[2019-04-21] MEDS: OMEGA 3 ACID ETHYL ESTERS 1 GM CAPSULE PO SCH (08:05)
[2019-04-21] MEDS: FERROUS SULFATE 325 MG TABLET PO SCH (08:05)
[2019-04-21] MEDS: LOSARTAN/HCTZ 50-12.5 MG TABLET PO SCH (08:05)
[2019-04-21] MEDS: ASPIRIN EC 325 MG TABLET PO SCH (08:05)
[2019-04-21] MEDS: AMIODARONE 200 MG TABLET PO SCH (08:06)
[2019-04-21] MEDS: PANTOPRAZOLE 40 MG TABLET PO SCH (08:06)
[2019-04-21] MEDS: MULTIVITAMIN (BEROCCA) TABLET PO SCH (08:06)
[2019-04-21] MEDS: CHOLECALCIFEROL 400 UNIT TABLET PO SCH (08:06)
[2019-04-21] MEDS: COENZYME Q10 100 MG CAPSULE PO SCH (08:06)
[2019-04-21] MEDS: MELOXICAM 7.5 MG TABLET PO SCH (08:06)
[2019-04-21] MEDS: CHLORHEXIDINE 0.12% ORAL RINSE 60 ML BOTTLE SWISH/SPIT SCH (08:12)
== END 2019-04-21 10:42 | disposition home health service (06) | DRG 220 ==
LOC: N.TELES 09:14 → N.CVR 04-16 07:49 → N.TELES 04-17 13:01

== ENCOUNTER 2019-11-04 19:31 | Inpatient (IN) ==
[2019-11-04] MEDS ORDERED: LEVOFLOXACIN INJ 750 MG in PREMIX 1 EACH IV STA (20:51)
[2019-11-04 20:52] LABS: ABG Base Excess -3.7 MMOL/L (-2.5-2.5); ABG HCO3 21.3 MMOL/L (20-26); ABG Oxygen Saturation 97.4 % (95-100); ABG PCO2 33.6 MM HG (35-48); ABG PH 7.391 (7.35-7.45); ABG PO2 92.8 MM HG (80-95); ABG TCO2 18.1 MMOL/L (23-27); Allen Test Positive
[2019-11-04 21:00] LABS: Basophils % 0.4 % (0.0-0.8); Hematocrit 40.7 VOL% (35.7-47.0); Hemoglobin 12.8 GM/DL (12.0-16.0); Immature Granulocytes % 1.9 %; Lymphocytes # 0.2 10*3/uL (1.4-4.0); Mean Corpuscular HGB Conc 31.4 GM/DL (32-36); Mean Corpuscular Volume 90.8 FL (87-102); Mean Platelet Volume 8.9 FL (9.6-12.0); Monocytes % 0.7 % (1.7-12.7); Platelet Count 119 T/CUMM (130-400); Red Blood Count 4.48 MC/CUMM (3.8-5.5); Red Cell Distribution Width 14.9 % (9.3-17.3); White Blood Count 10.7 T/CUMM (4-12)
[2019-11-04] MEDS ORDERED: LEVOFLOXACIN INJ 500 MG in PREMIX 1 EACH IV ONE (21:00)
[2019-11-04 21:27] LABS: Osmolality,Calculated 269.4 MOS/KG (273-304)
[2019-11-04] MEDS ORDERED: ACETAMINOPHEN 500 MG TABLET PO STA (21:33)
[2019-11-04 21:34] LABS: Band Neutrophils 29 % (0-10); Lymphocytes 3 % (20-55); Metamyelocytes 3 %; Segmented Neutrophils 63 % (50-85); Total Cells Counted 100
[2019-11-04 21:35] LABS: Platelet Estimate Adequate
[2019-11-04] MEDS ORDERED: hydrALAZINE 20 MG/1 ML VIAL IV PRN (21:50)
[2019-11-04] MEDS ORDERED: GLUCAGON 1 MG VIAL IM PRN (21:50)
[2019-11-04] MEDS ORDERED: diphenhydrAMINE CAP 25 MG CAPSULE PO PRN (21:50)
[2019-11-04] MEDS ORDERED: DEXTROSE 50% 25 GM/50 ML SYRINGE IV PRN (21:50)
[2019-11-04] MEDS ORDERED: ONDANSETRON 4 MG/2 ML VIAL IV PRN (21:50)
[2019-11-04] MEDS ORDERED: NICOTINE 21 MG/24 HR PATCH TRANSDERM PRN (21:50)
[2019-11-04] MEDS ORDERED: guaiFENesin/DM ER 600-30 MG TABLET PO PRN (21:50)
[2019-11-04] MEDS: SODIUM CHLORIDE 0.9% 1,000 ML IV SCH (23:45)
[2019-11-05 00:27] LABS: Apearance,Urine CLOUDY (Clear); Bacteria,Urine Occasional /HPF (Few); Bilirubin,Urine Negative (Negative); Blood, Urine Moderate mg/dL (Negative); Glucose,Urine (UA) Negative (Negative); Ketones,Urine Negative (Negative); Mucus,Urine Occasional /LPF (Occasional); Nitrite,Urine Negative (Negative); Protein,Urine 30 MG/DL; RBC,Urine 6 /HPF (0-4); Squamous Epithelial Cell,Urine Occasional /HPF (0-10); Urine Color Amber (Yellow); Urine Specific Gravity 1.019 (1.001-1.035); Urine Urobilinogen < 2.0 EU/DL (0.2-1.0); WBC,Urine 146 /HPF (0-6)
[2019-11-05 05:08] LABS: Albumin 2.7 G/DL (3.4-5.0); Bilirubin,Total 1.3 MG/DL (0.2-1.0); Calcium 8.9 MG/DL (8.5-10.1); Osmolality,Calculated 270.5 MOS/KG (273-304); Total Protein 6.7 G/DL (6.4-8.3)
[2019-11-05 05:11] LABS: Ferritin 121.5 ng/ml (8-252)
[2019-11-05] MEDS ORDERED: ASPIRIN 325 MG TABLET ONE (06:36)
[2019-11-05] MEDS: METOPROLOL TARTRATE 25 MG TABLET PO SCH ×3 (06:40→20:45)
[2019-11-05] MEDS: ASPIRIN 325 MG TABLET PO SCH (06:40)
[2019-11-05] MEDS ORDERED: VANCOMYCIN INJ 2,500 MG in SODIUM CHLORIDE 0.9% 500 ML IV ONE (08:00)
[2019-11-05] MEDS ORDERED: ZINC SULFATE 220 MG CAPSULE PO SCH (09:00)
[2019-11-05] MEDS ORDERED: ENOXAPARIN 30 MG/0.3 ML SYRINGE SUBCUT SCH (09:00)
[2019-11-05] MEDS ORDERED: HYDROXYCHLOROQUINE 200 MG TABLET PO SCH (09:00)
[2019-11-05] MEDS ORDERED: MECLIZINE 25 MG TABLET PO PRN (15:00)
[2019-11-05] MEDS: SODIUM CHLORIDE 0.9% 1,000 ML IV SCH (17:32)
[2019-11-05 18:59] LABS: CKMB % 1.4 %
[2019-11-05 19:11] LABS: Troponin I 14.7 NG/ML (0.00-0.045)
[2019-11-05] MEDS: OMEGA 3 ACID ETHYL ESTERS 1 GM CAPSULE PO SCH (20:45)
[2019-11-05] MEDS: COLESEVELAM 625 MG TABLET PO SCH (20:45)
[2019-11-05] MEDS ORDERED: LEVOFLOXACIN INJ 500 MG in PREMIX 1 EACH IV ONE (21:00)
[2019-11-05] MEDS ORDERED: ENOXAPARIN 120 MG/0.8 ML SYRINGE SUBCUT SCH (21:00)
[2019-11-05] MEDS: MORPHINE 4 MG/1 ML VIAL IV PRN (22:47)
[2019-11-06] MEDS: SODIUM CHLORIDE 0.9% 1,000 ML IV SCH (00:25)
[2019-11-06] MEDS: ALBUTEROL INHALER 8 GM INH SCH ×6 (00:25→22:21)
[2019-11-06] MEDS: MORPHINE 4 MG/1 ML VIAL IV PRN (05:15)
[2019-11-06 05:51] LABS: Basophils % 0.2 % (0.0-0.8); Hematocrit 40.5 VOL% (35.7-47.0); Hemoglobin 12.6 GM/DL (12.0-16.0); Immature Granulocytes % 16.2 %; Immature Granulocytes Absolute 2.13 #; Lymphocytes % 7.6 % (21.3-54.2); Mean Corpuscular HGB Conc 31.1 GM/DL (32-36); Mean Corpuscular Volume 90.8 FL (87-102); Mean Platelet Volume 10.8 FL (9.6-12.0); Monocytes % 4.2 % (1.7-12.7); Neutrophils % 71.8 % (38.7-73.9); Platelet Count 51 T/CUMM (130-400); Red Blood Count 4.46 MC/CUMM (3.8-5.5); Red Cell Distribution Width 15.2 % (9.3-17.3); White Blood Count 13.2 T/CUMM (4-12)
[2019-11-06 06:16] LABS: Band Neutrophils 9 % (0-10); Lymphocytes 5 % (20-55); Segmented Neutrophils 79 % (50-85); Total Cells Counted 100
[2019-11-06 06:17] LABS: Hypochromasia 1+; Microcytosis 1+; Ovalocytes Slight
[2019-11-06 06:18] LABS: Platelet Estimate Decreased; Tear Drop Cells Slight
[2019-11-06 06:33] LABS: Calcium 8.6 MG/DL (8.5-10.1); Osmolality,Calculated 281.4 MOS/KG (273-304)
[2019-11-06] MEDS ORDERED: VANCOMYCIN INJ 1,750 MG in SODIUM CHLORIDE 0.9% 500 ML IV PRN (08:00)
[2019-11-06 08:06] LABS: CKMB % 1.4 %; Troponin I 9.72 NG/ML (0.00-0.045)
[2019-11-06] MEDS ORDERED: RIVAROXABAN 15 MG TABLET PO SCH (09:00)
[2019-11-06] MEDS ORDERED: HYDROXYCHLOROQUINE 200 MG TABLET PO SCH (09:00)
[2019-11-06] MEDS ORDERED: LEVOFLOXACIN INJ 500 MG in PREMIX 1 EACH IV SCH (09:00)
[2019-11-06] MEDS: ASPIRIN 325 MG TABLET PO SCH (09:25)
[2019-11-06] MEDS: FESOTERODINE 4 MG PO SCH (09:25)
[2019-11-06] MEDS: MULTIVITAMIN (CENTRUM) TABLET PO SCH (09:25)
[2019-11-06] MEDS: COLESEVELAM 625 MG TABLET PO SCH ×2 (09:26→22:22)
[2019-11-06] MEDS: METOPROLOL TARTRATE 25 MG TABLET PO SCH ×2 (09:26→22:22)
[2019-11-06] MEDS: OMEGA 3 ACID ETHYL ESTERS 1 GM CAPSULE PO SCH ×2 (09:26→22:22)
[2019-11-06] MEDS: PANTOPRAZOLE 40 MG TABLET PO SCH (09:26)
[2019-11-06] MEDS: FUROSEMIDE 40 MG/4 ML VIAL IV SCH (09:29)
[2019-11-06] MEDS ORDERED: METOPROLOL TARTRATE 5 MG/5 ML VIAL IV ONE (10:32)
[2019-11-06] MEDS ORDERED: DILTIAZEM 50 MG/10 ML VIAL IV STA (10:58)
[2019-11-06] MEDS: dilTIAZem Drip 125 MG/125 ML PREMIX IV SCH ×2 (11:31→18:12)
[2019-11-06] MEDS ORDERED: VANCOMYCIN INJ 1,750 MG in SODIUM CHLORIDE 0.9% 500 ML IV ONE ×2 (12:00→18:00)
[2019-11-06] MEDS ORDERED: LEVOFLOXACIN INJ 250 MG in PREMIX 1 EACH IV SCH (21:00)
[2019-11-07] MEDS: ALBUTEROL INHALER 8 GM INH SCH ×7 (00:49→22:10)
[2019-11-07] MEDS: dilTIAZem Drip 125 MG/125 ML PREMIX IV SCH ×2 (02:32→10:55)
[2019-11-07 06:31] LABS: Basophils # 0.1 10*3/uL (0.0-0.2); Basophils % 0.6 % (0.0-0.8); Hematocrit 37.1 VOL% (35.7-47.0); Immature Granulocytes % 0.8 %; Immature Granulocytes Absolute 0.12 #; Lymphocytes # 0.8 10*3/uL (1.4-4.0); Lymphocytes % 5.1 % (21.3-54.2); Mean Corpuscular HGB Conc 32.3 GM/DL (32-36); Mean Corpuscular Volume 89.2 FL (87-102); Monocytes % 5.3 % (1.7-12.7); Neutrophils % 88.2 % (38.7-73.9); Platelet Count 57 T/CUMM (130-400); Red Blood Count 4.16 MC/CUMM (3.8-5.5); Red Cell Distribution Width 15.4 % (9.3-17.3); White Blood Count 14.8 T/CUMM (4-12)
[2019-11-07 06:50] LABS: Calcium 8.8 MG/DL (8.5-10.1); Osmolality,Calculated 289.5 MOS/KG (273-304)
[2019-11-07 06:51] LABS: Band Neutrophils 2 % (0-10); Hypochromasia 1+; Lymphocytes 4 % (20-55); Microcytosis 1+; Segmented Neutrophils 87 % (50-85); Total Cells Counted 100
[2019-11-07 06:52] LABS: Platelet Estimate Decreased
[2019-11-07 07:29] LABS: ABG Base Excess -0.1 MMOL/L (-2.5-2.5); ABG HCO3 24.2 MMOL/L (20-26); ABG PCO2 45.5 MM HG (35-48); ABG PO2 62.5 MM HG (80-95); ABG TCO2 22.9 MMOL/L (23-27); Allen Test Positive
[2019-11-07] MEDS ORDERED: LEVOFLOXACIN INJ 500 MG in PREMIX 1 EACH IV SCH (09:30)
[2019-11-07] MEDS: METOPROLOL TARTRATE 25 MG TABLET PO SCH ×2 (10:45→20:29)
[2019-11-07] MEDS: COLESEVELAM 625 MG TABLET PO SCH ×2 (10:45→20:40)
[2019-11-07] MEDS: ASPIRIN 325 MG TABLET PO SCH (10:45)
[2019-11-07] MEDS: FUROSEMIDE 40 MG/4 ML VIAL IV SCH (10:45)
[2019-11-07] MEDS ORDERED: PANTOPRAZOLE 40 MG VIAL IV ONE (11:03)
[2019-11-07] MEDS: ACETAMINOPHEN 325 MG TABLET PO PRN ×2 (11:45→20:43)
[2019-11-07] MEDS: VANCOMYCIN INJ 1,750 MG in SODIUM CHLORIDE 0.9% 500 ML IV SCH ×2 (13:30→23:09)
[2019-11-07] MEDS ORDERED: SODIUM CHLORIDE 0.9% 250 ML IV ONE ×2 (14:45→17:47)
[2019-11-07] MEDS: MULTIVITAMIN (CENTRUM) TABLET PO SCH (14:59)
[2019-11-07] MEDS: FESOTERODINE 4 MG PO SCH (14:59)
[2019-11-07] MEDS: PANTOPRAZOLE 40 MG TABLET PO SCH (15:00)
[2019-11-07] MEDS: OMEGA 3 ACID ETHYL ESTERS 1 GM CAPSULE PO SCH ×2 (15:00→20:39)
[2019-11-07] MEDS: PHENYLEPHRINE DRIP 40 MG/250 ML PREMIX IV PRN ×5 (15:03→23:54)
[2019-11-07] MEDS: SODIUM CHLORIDE 0.9% 1,000 ML IV SCH ×2 (15:03→19:31)
[2019-11-07] MEDS: NOREPINEPHRINE 8 MG in SODIUM CHLORIDE 0.9% 242 ML IV PRN ×2 (17:51→23:56)
[2019-11-07 19:27] VITALS: BP 84/49
[2019-11-07] MEDS ORDERED: ASPIRIN 300 MG SUPP RECTAL PRN (22:56)
[2019-11-08] MEDS: PHENYLEPHRINE DRIP 40 MG/250 ML PREMIX IV PRN ×3 (01:30→05:24)
[2019-11-08] MEDS: ALBUTEROL INHALER 8 GM INH SCH (04:09)
[2019-11-08] MEDS ORDERED: NOREPINEPHRINE 4 MG/4 ML VIAL IV ONE (04:24)
[2019-11-08] MEDS: NOREPINEPHRINE 8 MG in SODIUM CHLORIDE 0.9% 242 ML IV PRN (04:27)
[2019-11-08] MEDS: SODIUM CHLORIDE 0.9% 1,000 ML IV SCH (05:24)
[2019-11-08 05:43] LABS: Calcium 7.9 MG/DL (8.5-10.1); Osmolality,Calculated 299.4 MOS/KG (273-304)
[2019-11-08 05:56] LABS: Basophils # 0.1 10*3/uL (0.0-0.2); Basophils % 0.1 % (0.0-0.8); Eosinophils # 0.1 10*3/uL (0.0-0.87); Eosinophils % 0.1 % (0.00-10.9); Hematocrit 40.3 VOL% (35.7-47.0); Hemoglobin 11.1 GM/DL (12.0-16.0); Immature Granulocytes % 8.5 %; Immature Granulocytes Absolute 3.74 #; Lymphocytes # 4.1 10*3/uL (1.4-4.0); Lymphocytes % 9.3 % (21.3-54.2); Mean Corpuscular HGB Conc 27.5 GM/DL (32-36); Mean Corpuscular Volume 105.2 FL (87-102); Monocytes % 8.6 % (1.7-12.7); NRBC # 0.13 10*3/uL; Neutrophils % 73.4 % (38.7-73.9); Platelet Count 66 T/CUMM (130-400); Red Blood Count 3.83 MC/CUMM (3.8-5.5); Red Cell Distribution Width 16.4 % (9.3-17.3)
[2019-11-08 06:00] LABS: White Blood Count 43.8 T/CUMM (4-12)
[2019-11-08 06:05] LABS: Band Neutrophils 3 % (0-10); Hypochromasia 1+; Lymphocytes 4 % (20-55); Myelocytes 1 %; Nucleated Red Blood Cells 2 (0-5); Segmented Neutrophils 83 % (50-85); Total Cells Counted 100
[2019-11-08 06:06] LABS: Anisocytosis 1+; Microcytosis 1+; Ovalocytes Few; Platelet Estimate Decreased
[2019-11-08] MEDS: MORPHINE 4 MG/1 ML VIAL IV PRN (06:50)
== END 2019-11-08 07:04 | disposition expired ==
LOC: N.ED 19:31 → N.EDINP 22:06 → N.2E 11-05 05:19 → N.ICU 11-06 10:29
PROVIDERS: ADMIT Internal Medicine; ATTEND Internal Medicine